=== PATIENT | male | born 1965 | race Caucasian/White ===

== ENCOUNTER 2017-11-07 19:35 | Emergency (ER) | payer BC ==
[2017-11-07] MEDS ORDERED: ONDANSETRON 4 MG/2 ML VIAL IVP ONE (19:56)
[2017-11-07] MEDS ORDERED: NS 1,000 ML IV ONE (19:56)
[2017-11-07] MEDS ORDERED: fentaNYL 100 MCG/2 ML INJ IVP ONE ×2 (19:56→20:45)
--- NOTE | 2017-11-07 20:00 | EDPHY ---
H & P Time Seen by Provider: 11/07/17 19:49 HPI/ROS: CHIEF COMPLAINT: Abdominal pain HISTORY OF PRESENT ILLNESS: Patient is a 52-year-old male with a history of kidney stones who presents emergency department with sudden onset of right upper quadrant/right mid abdominal pain. Patient was on the basketball court with his 2-year-old daughter. He was not responding any strenuous activity. His pain was sudden and not associated with movement. He has had no nausea vomiting. No fevers or chills. The patient states he has been dealing with a kidney stone for the past few months. He had a renal ultrasound which showed no obstruction and he was started on Flomax. He has been taking Flomax for approximately 3 months. REVIEW OF SYSTEMS: My complete review of systems is negative except as mentioned in the HPI. Past Medical/Surgical History: Previous kidney stone, hepatic hemangioma Social history: Patient lives in [place]. He leaves on Saturday. Smoking Status: Never smoked Physical Exam: Vitals noted GENERAL: Well-appearing, in no acute distress, alert. HEENT: Eyes normal to inspection, normal pharynx, no signs of dehydration. NECK: [No thyromegaly, no lymphadenopathy, supple. RESPIRATORY: Clear to auscultation bilaterally, no rales, rhonchi or wheezing. CVS: Regular rate and rhythm, no rubs, murmurs, or gallops. ABDOMEN: Soft, nontender, nondistended, no organomegaly. Benign BACK: Normal to inspection, no CVA tenderness. SKIN: Normal color, no rash, warm, dry. No pallor. EXTREMITIES: No pedal edema, no calf tenderness, no Homans sign or cords, no joint swelling. NEURO/PSYCH: Alert and oriented, normal mood and affect, normal motor sensory exam. No obvious cranial nerve deficit. Constitutional: Initial Vital Signs Temperature (C) 37.0 C 11/07/17 19:44 Heart Rate 68 11/07/17 19:44 Respiratory Rate 16 11/07/17 19:44 Blood Pressure 129/80 H 11/07/17 19:44 O2 Sat (%) 98 11/07/17 19:44 O2 Delivery Mode Room Air Allergies/Adverse Reactions: No Known Allergies Allergy (Unverified 11/07/17 19:47) Home Medications: Medication Instructions Recorded Flomax 08/23/18 Ondansetron Odt [Zofran Odt 4 mg 4 mg PO Q4PRN PRN #7 tab 11/07/17 (*)] oxyCODONE/APAP 5/325 [Percocet 1 - 2 tab PO Q4PRN PRN #11 tab 11/07/17 5/325 (*)] Medical Decision Making - Diagnostics Imaging Results: Imaging Impressions Abdomen/Pelvis CT 11/07/17 19:56 IMPRESSION: 1. 0.3 cm right UVJ obstructing stone with moderate hydroureteronephrosis. 2. Large hepatic mass incompletely evaluated without contrast may represent patient's reported hepatic hemangioma, further evaluation with CT or MRI with contrast is recommended for complete evaluation as no prior studies are available for comparison. These findings were discussed with Dr. Blair at 8:40 PM on 11/07/2017. ED Course/Re-evaluation: In the emergency department I discussed possible etiologies with the patient. I answered all his questions. IV was placed. Patient given fentanyl 50 mcg IV and Zofran 4 mg IV. Laboratory studies, CT were ordered. CBC and chemistry unremarkable. UA is negative except for white cells and red cells which are pending. Abdomen pelvis CT: Please refer the dictated report. Patient has a 3 mm stone at the right UVJ. I discussed the results with the patient. Patient states his pain is slightly worse. He is given Toradol 30 mg IV and fentanyl 100 mcg IV. I discussed disposition options with the patient. I answered all his questions. Differential Diagnosis: My differential includes but is not limited to renal colic, kidney stone, cholecystitis, cholangitis, pancreatitis, small-bowel obstruction, perforation, urinary tract infection, pyelonephritis - Data Points Laboratory Results: Laboratory Results 11/07/17 19:59 11/07/17 19:59 11/07/17 11/07/17 11/07/17 19:59 19:59 19:55 WBC 6.46 10^3/uL 10^3/uL (3.80-9.50) RBC 4.22 10^6/uL L 10^6/uL (4.40-6.38) Hgb 14.0 g/dL g/dL (13.7-17.5) Hct 40.6 % % (40.0-51.0) MCV 96.2 fL fL (81.5-99.8) MCH 33.2 pg pg (27.9-34.1) MCHC 34.5 g/dL g/dL (32.4-36.7) RDW 12.6 % % (11.5-15.2) Plt Count 215 10^3/uL 10^3/uL (150-400) MPV 10.2 fL fL (8.7-11.7) Neut % (Auto) 41.6 % % (39.3-74.2) Lymph % (Auto) 45.4 % H % (15.0-45.0) [place] % (Auto) 11.3 % % (4.5-13.0) Eos % (Auto) 0.6 % % (0.6-7.6) Baso % (Auto) 0.9 % % (0.3-1.7) Nucleat RBC Rel Count 0.0 % % (0.0-0.2) Absolute Neuts (auto) 2.69 10^3/uL 10^3/uL (1.70-6.50) Absolute Lymphs (auto) 2.93 10^3/uL 10^3/uL (1.00-3.00) Absolute Monos (auto) 0.73 10^3/uL 10^3/uL (0.30-0.80) Absolute Eos (auto) 0.04 10^3/uL 10^3/uL (0.03-0.40) Absolute Basos (auto) 0.06 10^3/uL 10^3/uL (0.02-0.10) Absolute Nucleated RBC 0.00 10^3/uL 10^3/uL (0-0.01) Immature Gran % 0.2 % % (0.0-1.1) Immature Gran # 0.01 10^3/uL 10^3/uL (0.00-0.10) Sodium 142 mEq/L mEq/L (135-145) Potassium 3.9 mEq/L mEq/L (3.3-5.0) Chloride 104 mEq/L mEq/L (97-110) Carbon Dioxide 25 mEq/l mEq/l (22-31) Anion Gap 13 mEq/L mEq/L (8-16) BUN 21 mg/dL mg/dL (7-23) Creatinine 1.1 mg/dL mg/dL (0.7-1.3) Estimated GFR > 60 Glucose 91 mg/dL mg/dL (70-100) Calcium 10.0 mg/dL mg/dL (8.5-10.4) Total Bilirubin 0.3 mg/dL mg/dL (0.1-1.4) Conjugated Bilirubin 0.0 mg/dL mg/dL (0.0-0.5) Unconjugated Bilirubin 0.3 mg/dL mg/dL (0.0-1.1) AST 54 IU/L IU/L (17-59) ALT 42 IU/L IU/L (21-72) Alkaline Phosphatase 54 IU/L IU/L (38-126) Total Protein 7.3 g/dL g/dL (6.3-8.2) Albumin 4.6 g/dL g/dL (3.5-5.0) Urine Color YELLOW Urine Appearance CLEAR Urine pH 5.0 (5.0-7.5) Ur Specific [place] 1.016 (1.002-1.030) Urine Protein NEGATIVE (NEGATIVE) Urine Ketones NEGATIVE (NEGATIVE) Urine Blood NEGATIVE (NEGATIVE) Urine Nitrate NEGATIVE (NEGATIVE) Urine Bilirubin NEGATIVE (NEGATIVE) Urine Urobilinogen NEGATIVE EU EU (0.2-1.0) Ur Leukocyte Esterase NEGATIVE (NEGATIVE) Urine RBC Pending Urine WBC Pending Ur Epithelial Cells Pending Urine Glucose NEGATIVE (NEGATIVE) Medications Given: Discontinued Medications Fentanyl (Sublimaze) 50 mcg IVP EDNOW ONE Stop: 11/07/17 19:57 Last Admin: 11/07/17 20:02 Dose: 50 mcg Sodium Chloride (Ns) 1,000 mls @ 0 mls/hr IV EDNOW ONE; Wide Open PRN Reason: Protocol Stop: 11/07/17 19:57 Last Admin: 11/07/17 20:02 Dose: 1,000 mls Ondansetron HCl (Zofran) 4 mg IVP EDNOW ONE Stop: 11/07/17 19:57 Last Admin: 11/07/17 20:03 Dose: 4 mg Departure - Departure Disposition: Home, Routine, Self-Care Clinical Impression: Kidney stone on right side Abdominal pain Qualifiers: Abdominal location: right upper quadrant Qualified Code(s): R10.11 - Right upper quadrant pain Condition: Good Instructions: Abdominal Pain (ED), Kidney Stones (ED) Additional Instructions: You have a 3 mm stone at the right ureteral vesicular junction. Continue to take her Flomax. Take ibuprofen 600 mg every 6-8 hours for pain. If you of breakthrough pain take the prescribed Percocet. Referrals: NONE *PRIMARY CARE P,. [Primary Care Provider] - As per Instructions Evelina Villa MD [Medical Doctor] - 5-7 days, call for appt. Prescriptions: Ondansetron Odt [Zofran Odt 4 mg (*)] 4 mg PO Q4PRN PRN #7 tab PRN Reason: For Nausea & Vomiting oxyCODONE/APAP 5/325 [Percocet 5/325 (*)] 1 - 2 tab PO Q4PRN PRN #11 tab PRN Reason: For Moderate To Severe Pain
[2017-11-07 20:14] LABS: PLATELET COUNT 215 10^3/uL (150-400)
[2017-11-07] MEDS ORDERED: fentaNYL 100 MCG/2 ML INJ ONE (20:45)
[2017-11-07] MEDS ORDERED: KETOROLAC 30 MG/1 ML SDV IVP ONE (20:45)
[2017-11-07] MEDS ORDERED: KETOROLAC 30 MG/1 ML SDV ONE (20:45)
[2017-11-07] MEDS ORDERED: ONDANSETRON 4MG PREPACK#2 BTL TAKEHOME ONE (20:48)
[2017-11-07] MEDS ORDERED: OXYCODONE/APAP 5/325MG PREPACK#4 BTL TAKEHOME ONE (20:48)
[2017-11-07 21:13] VITALS: BP 124/82
== END 2017-11-07 21:27 | disposition home or self-care (01) ==
DX: N20.0 Calculus of kidney (principal); E86.9 Volume depletion, unspecified
CPT/HCPCS: 96374; J1885; J2405; J3010